=== PATIENT | female | born 1995 | race Caucasian/White ===

== ENCOUNTER → 2017-02-14 | Outpatient (CLI) | payer BC | LOC: RAD 16:32 | DX: R07.9 Chest pain, unspecified (principal); J98.4 Other disorders of lung | CPT/HCPCS: 71020; 96372; J1885 ==

== ENCOUNTER 2021-10-01 09:11 | Emergency (ER) | payer OTHER ==
[2021-10-01 10:08] LABS: HEMOGLOBIN 12.6 gm/dl (12.3-15.3); RED BLOOD COUNT 4.34 M/UL (4.00-5.10); WHITE BLOOD COUNT 6.1 K/UL (4.5-11.0)
[2021-10-01 10:31] LABS: BUN/CREATININE RATIO 21 (0-10)
[2021-10-01] MEDS ORDERED: IBUPROFEN600 MG PO (12:58)
== END 2021-10-01 13:20 | disposition home or self-care (01) ==
LOC: ER1 09:11
PROVIDERS: Nurse Practitioner
DX: U07.1 COVID-19 (principal); N20.0 Calculus of kidney; Z90.49 Acquired absence of other specified parts of digestive tract; Z88.8 Allergy status to other drugs, medicaments and biological substances; Z87.442 Personal history of urinary calculi
CPT/HCPCS: 80053; 81001; 82150; 83690; 85025; 87077; 87086; 87186; 96374; 96375; 99284; J1885; J2270; J2405; U0002

== ENCOUNTER 2021-10-02 18:48 | Emergency (ER) | payer OTHER ==
[~2021-10-02 18:48] MED LIST: IBUPROFEN600 MG PO
[2021-10-02 19:50] LABS: HEMOGLOBIN 11.5 gm/dl (12.3-15.3); RED BLOOD COUNT 3.94 M/UL (4.00-5.10)
[2021-10-02 19:51] LABS: WHITE BLOOD COUNT 7.7 K/UL (4.5-11.0)
[2021-10-02 20:15] LABS: BUN/CREATININE RATIO 24 (0-10)
[2021-10-03] MEDS ORDERED: OMNICEF 300 MG300 MG PO (03:18)
[2021-10-03] MEDS ORDERED: ZOFRAN4 MG PO (03:18)
[2021-10-03] MEDS ORDERED: PHENERGAN 12.12.5 MG PR (03:18)
[2021-10-03] MEDS ORDERED: PHENERGAN 25 MG25 M1 PO (03:18)
== END 2021-10-03 04:00 | disposition home or self-care (01) ==
LOC: ER1 18:48
PROVIDERS: Physician Assistant Medical
DX: U07.1 COVID-19 (principal); N39.0 Urinary tract infection, site not specified; Z90.49 Acquired absence of other specified parts of digestive tract; Z91.012 Allergy to eggs; F17.290 Nicotine dependence, other tobacco product, uncomplicated
CPT/HCPCS: 71045; 80053; 81001; 83605; 84703; 85025; 87040; 96374; 96375; 99284; J0696; J2550; J7030; Q9967

== ENCOUNTER 2022-03-27 16:03 | Observation (INO) | payer OTHER ==
[~2022-03-27] VITALS: Ht 157.5 cm; Wt 48.1 kg
[~2022-03-27 16:03] MED LIST changes: +OMNICEF 300 MG300 MG PO; +PHENERGAN 12.12.5 MG PR; +PHENERGAN 25 MG25 M1 PO; +ZOFRAN4 MG PO
[2022-03-27 17:00] LABS: HEMOGLOBIN 12.4 gm/dl (12.3-15.3); RED BLOOD COUNT 4.54 M/UL (4.00-5.10); WHITE BLOOD COUNT 6.3 K/UL (4.5-11.0)
[2022-03-27 17:30] LABS: BUN/CREATININE RATIO 17 (0-10)
[2022-03-28 06:46] LABS: HEMOGLOBIN 9.2 gm/dl (12.3-15.3); RED BLOOD COUNT 3.32 M/UL (4.00-5.10); WHITE BLOOD COUNT 3.2 K/UL (4.5-11.0)
[2022-03-28] MEDS ORDERED: AZITHROMYCIN250 MG PO (10:48)
[2022-03-28] MEDS ORDERED: IBU600 MG PO (10:49)
[2022-03-28] MEDS ORDERED: PRAZOSIN HCL1 MG PO (10:49)
[2022-03-28] MEDS ORDERED: QUETIAPINE FUMA25 MG PO (10:51)
[2022-03-28] MEDS ORDERED: HYDROCODON-ACE1 EAC2 PO (10:52)
[2022-03-28] MEDS ORDERED: PROBIOTIC1 EAC1 PO (10:54)
[2022-03-28 13:41] LABS: BUN/CREATININE RATIO 11 (0-10)
[2022-03-28 17:21] LABS: ADENOVIRUS F 40/41 Not Detected (Negative); ASTROVIRUS Not Detected (Negative); CAMPYLOBACTER Not Detected (Negative); CRYPTOSPORIDIUM Not Detected (Negative); E.COLI 0157 Not Detected (Negative); ENTAMOEBA HISTOLYTICA Not Detected (Negative); ENTEROAGGREGATIVE E.COLI (EAEC Not Detected (Negative); ENTEROPATHOGENIC E.COLI (EPEC) Not Detected (Negative); ENTEROTOXIGENIC E.COLI (ETEC) Not Detected (Negative); GIARDIA LAMBLIA Not Detected (Negative); NOROVIRUS GI/GII Not Detected (Negative); PLESIOMONAS SHIGELLOIDES Not Detected (Negative); ROTOVIRUS A Not Detected (Negative); SALMONELLA Not Detected (Negative); SAPOVIRUS Not Detected (Negative); SHIG/ENTEROINVAS.ECOLI (EIEC) Not Detected (Negative); SHIGA-LIK TOX.PRO.E.COLI (STEC Not Detected (Negative); VIBRIO Not Detected (Negative); VIBRIO CHOLERAE Not Detected (Negative); YERSINIA ENTEROCOLITICA Not Detected (Negative)
[2022-03-28 18:45] LABS: CLOSTRIDIUM DIFFICILE TOX A/B Not Detected (Negative)
[2022-03-29 06:19] LABS: HEMOGLOBIN 9.4 gm/dl (12.3-15.3); RED BLOOD COUNT 3.44 M/UL (4.00-5.10)
[2022-03-29 06:30] LABS: WHITE BLOOD COUNT 4.1 K/UL (4.5-11.0)
[2022-03-29 06:52] LABS: BUN/CREATININE RATIO 4 (0-10)
[2022-03-29] MEDS ORDERED: IMODIUM CAP 2 MG2 MG PO (11:18)
[2022-03-29] MEDS ORDERED: PHENERGAN 12.12.5 M1 PO (11:18)
== END 2022-03-29 12:53 | disposition home or self-care (01) ==
LOC: ER1 16:03 → MED SURG 4 20:41 → CDU 20:41 → MED SURG 4 22:01
PROVIDERS: Family Medicine; Internal Medicine Infectious Disease; ADMIT Internal Medicine
DX: A08.4 Viral intestinal infection, unspecified (principal); E86.0 Dehydration; D72.819 Decreased white blood cell count, unspecified; N83.291 Other ovarian cyst, right side; F43.10 Post-traumatic stress disorder, unspecified; E44.0 Moderate protein-calorie malnutrition; Z68.1 Body mass index [BMI] 19.9 or less, adult; Z20.822 Contact with and (suspected) exposure to COVID-19; Z88.0 Allergy status to penicillin; Z88.1 Allergy status to other antibiotic agents; Z88.2 Allergy status to sulfonamides; Z88.8 Allergy status to other drugs, medicaments and biological substances; Z79.899 Other long term (current) drug therapy
CPT/HCPCS: 0240U; 71045; 80048; 80053; 81001; 83605; 83735; 84100; 84439; 84443; 85025; 85027; 87040; 87086; 87507; 96361; 96374; 96375; 99285; C9113; G0378; J0696; J1650; J1885; J2270; J2405; J2543; J2550; J3480; J7030; Q9967